=== PATIENT | female | born 1950 | race Hispanic/Latino ===

== ENCOUNTER 2023-02-25 16:15 | Emergency (ER) | payer MEDICARE ==
[~2023-02-25] VITALS: Ht 152.4 cm; Wt 68.0 kg
[~2023-02-25 16:15] MED LIST: ASPIRIN81 MG PO; CELEXA10 MG PO; GABAPENTIN300 MG PO; LEVAQUIN500 MG PO; LISINOPRIL40 MG PO; LOVENOX30 MG/0.3 SC; METFORMIN PO; PERCOCET PO
[2023-02-25 17:39] VITALS: O2SAT 96
[2023-02-25] MEDS ORDERED: ACETAMINOPHEN 325 MG TAB PO ONE (17:45)
== END 2023-02-25 17:55 | disposition home or self-care (01) ==
LOC: ER 16:22
DX: R51.9 Headache, unspecified (principal); M54.2 Cervicalgia; W05.0XXA Fall from non-moving wheelchair, initial encounter; Y93.89 Activity, other specified; M25.562 Pain in left knee; M25.561 Pain in right knee
CPT/HCPCS: 70450; 72125; 99284